=== PATIENT | female | born 1960 | race Caucasian/White ===

== ENCOUNTER 2018-07-03 01:19 | Emergency (ER) | payer MEDICAID ==
[2018-07-03] MEDS ORDERED: Aspirin 81 MG Tab.Chew PO ONE (02:39)
[2018-07-03] MEDS ORDERED: Ketorolac 60 MG/2 ML SDV IM ONE (02:40)
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
--- NOTE | 2018-07-03 03:18 | CRLCR ---
INDICATION: Chest pain TECHNIQUE: Chest 2 views. COMPARISON: May 04, 2012 FINDINGS: Cardiovascular and mediastinum: Heart size and vasculature are normal in caliber and appearance. Mediastinum is within normal limits. Lungs and pleural spaces: Lungs are clear. No sign of infiltrate or mass. No sign of pleural effusion. No pneumothorax. Bones and soft tissues: No significant findings. Surgical clips noted in the right upper quadrant. IMPRESSION: No sign of acute disease. Dictated by Mary Ann Smith MD @ Jul 03 2018 3:15AM Signed by Dr. Mary Ann Smith @ Jul 03 2018 3:16AM
[2018-07-03] MEDS ORDERED: Codeine/guaiFENesin 100mg-10 MG/5 ML Syrup 10 ML Cup PO ONE (03:35)
== END 2018-07-03 03:49 | disposition home or self-care (01) ==
LOC: JP.ED 01:19
DX: J20.9 Acute bronchitis, unspecified (principal); I25.10 Atherosclerotic heart disease of native coronary artery without angina pectoris; I25.2 Old myocardial infarction; Z79.84 Long term (current) use of oral hypoglycemic drugs; Z79.899 Other long term (current) drug therapy; Z90.49 Acquired absence of other specified parts of digestive tract; Z90.710 Acquired absence of both cervix and uterus
CPT/HCPCS: 36415; 71046; 80053; 84484; 85025; 93005; 96372; 99284; A9270; J1885

== ENCOUNTER 2020-07-11 09:44 | Day surgery (SDC) | payer MEDICAID ==
[~2020-07-11 09:44] MED LIST: Bacitracin Oint 1 GM U/D Packet ONE
[2020-07-11] MEDS ORDERED: Sodium Chloride 0.9% 1,000 ML IV SCH (10:45)
[2020-07-11] MEDS ORDERED: Midazolam 1 MG/ML 2 ML SDV ONE (11:37)
[2020-07-11] MEDS ORDERED: Propofol 200 MG/20 ML SDV ONE ×2 (11:37→12:22)
[2020-07-11] MEDS ORDERED: fentaNYL 100 MCG/2 ML SDV ONE (11:37)
[2020-07-11] MEDS ORDERED: Ondansetron 4 MG/2 ML SDV ONE (11:42)
--- NOTE | 2020-07-12 08:05 | OR ---
DATE OF PROCEDURE: SURGEON: Sincere Mackey MD PROCEDURE: Paracentesis. FINDINGS: 6 L of straw-colored fluid. COMPLICATIONS: None. REGIONAL HR MANAGER: None. ANESTHESIA: MAC anesthetic due to allergies with local anesthetic. RISKS: Risks, benefits, alternatives, and limitations including, but not limited to, infection, bleeding, injury to abdominal structures such as bowel, blood vessels, and other risks not listed here were explained to the patient and she wished to proceed. PROCEDURE IN DETAIL: The patient was placed in supine position. The area had been marked via the laundry technician. Approximately 1 L of fluid was able to be removed from the site. This was performed by anesthetizing the skin with lidocaine. This was begun by a single addie created in the skin. The sheath was introduced as the needle was withdrawn. Approximately, 1 L of fluid was able to be removed from this area. Due to the patient's body habitus, a second location was used, and an additional 5 L of fluid was able to be removed. No evidence of enterotomy or injury was noted during this procedure. This was then sutured with 3-0 Prolene in an interrupted fashion. The patient tolerated the procedure well. Sincere Mackey MD /[id number]
== END 2020-07-11 14:45 | disposition home or self-care (01) ==
LOC: JP.SDS 09:44
PROVIDERS: ATTEND Surgery
DX: R18.8 Other ascites (principal); I10 Essential (primary) hypertension; E11.9 Type 2 diabetes mellitus without complications; F17.200 Nicotine dependence, unspecified, uncomplicated; Z01.812 Encounter for preprocedural laboratory examination; Z20.822 Contact with and (suspected) exposure to COVID-19
CPT/HCPCS: 36415; 82040; 82150; 82945; 83615; 83986; 84155; 87015; 87070; 87102; 87116; 87205; 87206; 87220; 89050; J2250; J2405; J2704; J3010; J7030; U0002

== ENCOUNTER 2020-07-26 06:21 | Day surgery (SDC) | payer MEDICAID ==
[2020-07-26] MEDS ORDERED: Sodium Chloride 0.9% 1,000 ML IV SCH (07:00)
[2020-07-26] MEDS ORDERED: Albuterol/Ipratropium 3.0-0.5 MG/3 ML Neb Soln NEB ONE (07:30)
[2020-07-26] MEDS ORDERED: Propofol 200 MG/20 ML SDV ONE ×2 (07:36→08:10)
[2020-07-26] MEDS ORDERED: Sodium Chloride 0.9% 10 ML ONE (07:37)
[2020-07-26] MEDS ORDERED: Bacitracin Oint 1 GM U/D Packet ONE (07:48)
--- NOTE | 2020-07-26 13:42 | OR ---
DATE OF PROCEDURE: 07/26/2020 SURGEON: Sincere Mackey MD PROCEDURE: Paracentesis. FINDINGS: 5.5 L of straw-colored fluid. COMPLICATIONS: None. AGRICULTURAL CROP FARM MANAGER: None. PREOPERATIVE DIAGNOSIS: Ascites. POSTOPERATIVE DIAGNOSIS: Ascites. RISKS: Risks, benefits, alternatives, and limitations including but not limited to infection, bleeding, injury to abdominal structures such as intestines, blood vessels, and other risks not listed here. PROCEDURE IN DETAIL: The patient was placed in supine position. The area was prepped and draped and was marked by ultrasound preoperatively. Due to the patient's allergy, no local anesthetic was used. A addie was created in the skin. The needle was introduced and advanced into the abdomen without difficulty. As the sheath was introduced, the needle was withdrawn. This was hooked to a vacuum bottle system and approximately 5.5 L was able to be removed without difficulty. The wound was then closed with a [id number] suture. The patient tolerated the procedure well. Sincere Mackey MD /[id number]
== END 2020-07-26 10:59 | disposition home or self-care (01) ==
LOC: JP.SDS 06:21
PROVIDERS: ATTEND Surgery
DX: R18.8 Other ascites (principal); J45.909 Unspecified asthma, uncomplicated; I10 Essential (primary) hypertension; E11.9 Type 2 diabetes mellitus without complications; E03.9 Hypothyroidism, unspecified; Z88.8 Allergy status to other drugs, medicaments and biological substances
CPT/HCPCS: 49083; 94640; J2704; J7030; J7620-GY

== ENCOUNTER 2020-08-04 08:45 | Emergency (ER) | payer MEDICAID ==
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
[2020-08-04] MEDS ORDERED: Sodium Chloride 0.9% 10 ML Syringe FLUSH PRN (10:07)
[2020-08-04] MEDS ORDERED: Sodium Chloride 0.9% 100 ML IV SCH (12:30)
[2020-08-04] MEDS ORDERED: Iopamidol 755 Mg/ML 100 ML Bottle IV SCH (12:30)
[2020-08-04] MEDS ORDERED: diphenhydrAMINE 50 MG/ML SDV IVPUSH ONE (12:34)
[2020-08-04] MEDS ORDERED: methylPREDNISolone Sodium Succinate 125 MG/2 ML SDV IVPUSH ONE (12:45)
[2020-08-04] MEDS ORDERED: Nystatin Susp 100,000 Unit/ML 5 ML UD Cup PO ONE (13:52)
--- NOTE | 2020-08-05 09:17 | CR ---
CHEST: Portable 08/04/2020 at 10:27 AM CLINICAL HISTORY:SOB COMPARISON:07/03/2018 FINDINGS: There is less than optimal inspiration. The heart size, pulmonary vascularity and hilar structures are normal. No infiltrate effusion or pneumothorax is seen. IMPRESSION: Less than optimal inspiration. No acute cardiopulmonary process.
== END 2020-08-04 14:15 | disposition hospice, inpatient (51) ==
LOC: JP.ED 08:45
DX: B37.0 Candidal stomatitis (principal); C64.9 Malignant neoplasm of unspecified kidney, except renal pelvis; R18.8 Other ascites; D69.6 Thrombocytopenia, unspecified; D72.829 Elevated white blood cell count, unspecified; I25.10 Atherosclerotic heart disease of native coronary artery without angina pectoris; I25.2 Old myocardial infarction; J45.909 Unspecified asthma, uncomplicated; K21.9 Gastro-esophageal reflux disease without esophagitis; E11.9 Type 2 diabetes mellitus without complications; E03.9 Hypothyroidism, unspecified; Z85.828 Personal history of other malignant neoplasm of skin; Z91.030 Bee allergy status; Z88.0 Allergy status to penicillin; Z91.048 Other nonmedicinal substance allergy status; Z88.8 Allergy status to other drugs, medicaments and biological substances; Z91.041 Radiographic dye allergy status; Z91.040 Latex allergy status; Z88.4 Allergy status to anesthetic agent; Z88.2 Allergy status to sulfonamides; Z79.84 Long term (current) use of oral hypoglycemic drugs; Z79.899 Other long term (current) drug therapy; Z20.822 Contact with and (suspected) exposure to COVID-19
CPT/HCPCS: 36415; 71045; 71045-26; 80053; 81001; 82150; 83605; 83690; 85025; 85610; 85730; 99283; 99285-25; A9270-GY; U0002